=== PATIENT | female | born 1955 | race African-American/Black ===

== ENCOUNTER 2019-09-23 08:09 | Outpatient (CLI) | payer OTHER | END 2019-09-23 23:59 | disposition home or self-care (01) | LOC: LAB 08:09 | PROVIDERS: ATTEND Anesthesiology | DX: Z01.812 Encounter for preprocedural laboratory examination (principal); Z11.59 Encounter for screening for other viral diseases | CPT/HCPCS: C9803; U0003 ==

== ENCOUNTER 2019-09-28 07:05 | Day surgery (SDC) | payer OTHER ==
[2019-09-28] MEDS ORDERED: ANESTHESIA TRAY IN PYXIS 1 EA TRAY MC ONE (07:08)
[2019-09-28] MEDS ORDERED: LIDOCAINE HCL/MPF 1% 30 ML VIAL IJ ONE (08:02)
[2019-09-28] MEDS ORDERED: IOHEXOL 240MG/ML 50 ML IV ONE (08:02)
[2019-09-28] MEDS ORDERED: methylPREDNISolone ACETATE 80 MG/ML VIAL ONE (08:02)
[2019-09-28] MEDS ORDERED: BUPIVACAINE 0.25% 75 MG/30 ML VIAL ONE (08:02)
== END 2019-09-28 09:40 | disposition home or self-care (01) ==
LOC: DS 07:05
PROVIDERS: ATTEND Anesthesiology
DX: M47.897 Other spondylosis, lumbosacral region (principal); M51.36 Other intervertebral disc degeneration, lumbar region; M51.26 Other intervertebral disc displacement, lumbar region; M53.3 Sacrococcygeal disorders, not elsewhere classified; I10 Essential (primary) hypertension; Z79.899 Other long term (current) drug therapy
CPT/HCPCS: 64493; 64494; 72100; A6209; J1040; J1885; J2704; J3490 ×2; Q9966

== ENCOUNTER 2019-10-21 10:57 | Outpatient (CLI) | payer OTHER | END 2019-10-21 23:59 | disposition home or self-care (01) | LOC: LAB 10:57 | PROVIDERS: ATTEND Anesthesiology | DX: Z01.812 Encounter for preprocedural laboratory examination (principal); Z11.59 Encounter for screening for other viral diseases ==

== ENCOUNTER 2019-10-26 07:09 | Day surgery (SDC) | payer OTHER ==
[2019-10-26] MEDS ORDERED: IOHEXOL 240MG/ML 50 ML IV ONE (07:29)
[2019-10-26] MEDS ORDERED: LIDOCAINE HCL/MPF 1% 30 ML VIAL IJ ONE (07:30)
[2019-10-26] MEDS ORDERED: TRIAMCINOLONE ACETONIDE SUSP 40 MG/ML 1 ML ONE (07:30)
[2019-10-26] MEDS ORDERED: ANESTHESIA TRAY IN PYXIS 1 EA TRAY MC ONE (07:30)
[2019-10-26] MEDS ORDERED: BUPIVACAINE 0.5 % PF 150 MG/30 ML VIAL ONE (07:30)
[2019-10-26] MEDS ORDERED: BETA ACET/BET NA PHOS MDV 6 MG/ML VIAL ONE (07:31)
[2019-10-26] MEDS ORDERED: FENTANYL PF 100MCG/2ML AMPUL ONE (07:44)
[2019-10-26] MEDS ORDERED: MIDAZOLAM HCL 2 MG/2ML VIAL ONE (07:44)
[2019-10-26] MEDS ORDERED: DEXAMETHASONE SOD PHOSPHATE 4 MG/ML VIAL ONE (08:17)
[2019-10-26] MEDS ORDERED: DEXAMETHASONE SOD PHOSPHATE 10 MG/ML VIAL ONE ×3 (08:17→09:16)
== END 2019-10-26 10:00 | disposition home or self-care (01) ==
LOC: DS 07:09
PROVIDERS: ATTEND Anesthesiology
DX: M47.27 Other spondylosis with radiculopathy, lumbosacral region (principal); I10 Essential (primary) hypertension; Z79.899 Other long term (current) drug therapy
CPT/HCPCS: 64483; 64484; 72020; A6402; J1100 ×3; J2250; J3010; J3490; Q9966; J0702; J2405; J2704; J2765